=== PATIENT | female | born 2005 | race Caucasian/White ===

== ENCOUNTER 2023-04-08 09:13 | Emergency (ER) | payer MEDICAID ==
[~2023-04-08] VITALS: Ht 149.9 cm; Wt 45.8 kg
[~2023-04-08 09:13] MED LIST: ALBU18HF2 IH; IBUP-1984 PO
[2023-04-08 09:18] VITALS: BP 147/94
[2023-04-08] MEDS ORDERED: dexamethasone sod phosphate 10mg/ml inj PO STA (10:11)
[2023-04-08] MEDS ORDERED: AMOX-117 PO (10:11)
[2023-04-08] MEDS ORDERED: LIDO20SO16 PO (10:11)
== END 2023-04-08 10:27 | disposition home or self-care (01) ==
LOC: ER 09:14
DX: J02.0 Streptococcal pharyngitis (principal)
CPT/HCPCS: 87880; 99283; J1100

== ENCOUNTER 2023-04-09 09:53 | Emergency (ER) | payer MEDICAID ==
[~2023-04-09] VITALS: Ht 149.9 cm; Wt 45.5 kg
[~2023-04-09 09:53] MED LIST changes: +AMOX-117 PO; +LIDO20SO16 PO
[2023-04-09 09:55] VITALS: BP 111/78
== END 2023-04-09 13:17 | disposition home or self-care (01) ==
LOC: ER 09:53
DX: S93.492A Sprain of other ligament of left ankle, initial encounter (principal); Z79.899 Other long term (current) drug therapy; W10.8XXA Fall (on) (from) other stairs and steps, initial encounter; Y93.89 Activity, other specified; Y92.89 Other specified places as the place of occurrence of the external cause; Y99.8 Other external cause status
CPT/HCPCS: 73610; 99283; L1930

== ENCOUNTER 2023-04-20 07:45 | Emergency (ER) | payer MEDICAID ==
[~2023-04-20] VITALS: Ht 149.9 cm; Wt 47.0 kg
[~2023-04-20 07:45] MED LIST changes: -AMOX-117 PO
[2023-04-20] MEDS ORDERED: dexamethasone sod phosphate 10mg/ml inj IM STA (08:41)
[2023-04-20 08:48] VITALS: BP 129/63
== END 2023-04-20 08:49 | disposition home or self-care (01) ==
LOC: ER 07:45
DX: J02.9 Acute pharyngitis, unspecified (principal)
CPT/HCPCS: 96372; 99283; J1100

== ENCOUNTER 2023-10-30 06:58 | Emergency (ER) | payer MEDICAID ==
[~2023-10-30] VITALS: Ht 149.9 cm; Wt 52.3 kg
[2023-10-30 09:25] LABS: STREP A SCREEN NEGATIVE (Neg)
[2023-10-30] MEDS ORDERED: DEXAMETHASONE 6 MG TABLET PO SCH (09:35)
[2023-10-30] MEDS ORDERED: DEXAMETHASONE 6 MG TABLET PO ONE (09:35)
[2023-10-30 10:05] VITALS: BP 115/79; PULSE 95; RESP 15; TEMP 99.3; O2SAT 100
== END 2023-10-30 10:09 | disposition home or self-care (01) ==
LOC: ER 06:59
DX: J02.9 Acute pharyngitis, unspecified (principal); Z79.899 Other long term (current) drug therapy
CPT/HCPCS: 87081; 87880; 99283; J8540

== ENCOUNTER 2024-04-03 16:46 | Emergency (ER) | payer MEDICAID ==
[~2024-04-03] VITALS: Ht 149.9 cm; Wt 50.0 kg
[2024-04-03 16:56] VITALS: BP 128/81; PULSE 89; RESP 16; TEMP 98.4; O2SAT 100
[2024-04-03] MEDS ORDERED: AMOX-117 PO (17:34)
== END 2024-04-03 18:00 | disposition home or self-care (01) ==
LOC: ER 16:46
DX: S50.11XA Contusion of right forearm, initial encounter (principal); Z79.899 Other long term (current) drug therapy; W54.0XXA Bitten by dog, initial encounter; Y93.89 Activity, other specified; Y92.89 Other specified places as the place of occurrence of the external cause; Y99.8 Other external cause status
CPT/HCPCS: 73090; 99283

== ENCOUNTER 2025-01-30 22:20 | Emergency (ER) | payer MEDICAID ==
[~2025-01-30] VITALS: Ht 149.9 cm; Wt 52.8 kg
[2025-01-30 23:34] VITALS: BP 119/78; PULSE 75; RESP 14; TEMP 99.1; O2SAT 98
== END 2025-01-30 23:37 | disposition home or self-care (01) ==
LOC: ER 22:21
DX: J06.9 Acute upper respiratory infection, unspecified (principal)
CPT/HCPCS: 71045; 99283